=== PATIENT | female | born 1950 | race Caucasian/White ===

== ENCOUNTER 2021-04-04 16:05 | Outpatient (CLI) | payer OTHER ==
[2021-04-04 19:50] LABS: BASOPHILS % (AUTO) 0.7 %; EOSINOPHILS # (AUTO) 0.3 10^3/uL (0.0-0.7); EOSINOPHILS % (AUTO) 4.3 %; HCT - HEMATOCRIT 41.9 % (37.0-47.0); HGB - HEMOGLOBIN 13.6 g/dL (12.0-16.0); LYMPHOCYTES # (AUTO) 1.9 10^3/uL (1.5-3.5); MEAN CORPUSCULAR HEMOGLOBIN 31.1 pg (27.0-31.0); MEAN CORPUSCULAR HGB CONC 32.5 g/dL (32.0-36.0); MEAN CORPUSCULAR VOLUME 95.9 fL (81.0-99.0); MEAN PLATELET VOLUME 10.8 fL (7.9-10.8); MONOCYTES # (AUTO) 0.3 10^3/uL (0.0-1.0); MONOCYTES % (AUTO) 5.6 %; NEUTROPHILS # (AUTO) 3.6 10^3/uL (1.5-6.6); NEUTROPHILS % (AUTO) 58.2 %; PLT - PLATELET COUNT 221 10^3/uL (130-450); RED BLOOD COUNT 4.37 10^6/uL (4.20-5.40); RED CELL DISTRIBUTION WIDTH 13.4 % (12.0-15.0); WHITE BLOOD COUNT 6.1 x10^3/uL (4.8-10.8)
[2021-04-04 20:08] LABS: ALBUMIN 4.5 g/dL (3.2-5.5); ALBUMIN/GLOBULIN RATIO 1.9 (1.0-2.2); ALKALINE PHOSPHATASE 68 IU/L (42-121); ALT ALANINE AMINOTRANSFERASE 24 IU/L (10-60); AST ASPARTATE AMINOTRANSFERASE 23 IU/L (10-42); BILIRUBIN,TOTAL 0.8 mg/dL (0.2-1.0); BUN - BLOOD UREA NITROGEN 25 mg/dL (6-20); CALCIUM 9.8 mg/dL (8.5-10.3); CARBON DIOXIDE - CO2 26 mmol/L (21-32); CHLORIDE 102 mmol/L (101-111); CREATININE 0.6 mg/dL (0.4-1.0); GFR - MDRD 99 (>89); GLUCOSE 97 mg/dL (70-100); POTASSIUM 3.6 mmol/L (3.5-5.0); SODIUM 137 mmol/L (135-145); TOTAL PROTEIN 6.9 g/dL (6.7-8.2); URIC ACID 3.9 mg/dL (2.6-7.2)
[2021-04-04 20:12] LABS: CRP - C-REACTIVE PROTEIN < 1.0 mg/dL (0-1.0)
== END 2021-04-04 16:06 | disposition home or self-care (01) ==
LOC: LAB.S 16:05
PROVIDERS: ATTEND Nurse Practitioner Family
DX: R60.0 Localized edema (principal)
CPT/HCPCS: 36415; 80053; 84550; 85025; 85651; 86140

== ENCOUNTER 2021-04-17 15:46 | Outpatient (CLI) | payer OTHER ==
--- NOTE | 2021-04-17 16:30 | XRAY Report ---
PROCEDURE: Foot 3 View RT INDICATIONS: r60.0 localized edema TECHNIQUE: 3 views of the foot were acquired. COMPARISON: None FINDINGS: Bones: Linear lucency traverses the plantar surface of the distal phalanx of the first digit. No susp icious bony lesions. Severe joint space narrowing and periarticular osteophyte formation at the firs t metatarsophalangeal joint. Soft tissues: No tibiotalar joint effusion. Achilles tendon appears normal. IMPRESSION: 1. Possible fracture of the distal pharynx of the first digit. This could be further assessed with MR I, if clinically indicated. 2. First metatarsophalangeal joint osteoarthritis. Reviewed by: Markos San MD on 04/17/2021 4:29 PM PDT Approved by: Markos San MD on 04/17/2021 4:29 PM PDT Station ID: [id number]
== END 2021-04-17 15:47 | disposition home or self-care (01) ==
LOC: DI.S 15:46
PROVIDERS: ATTEND Nurse Practitioner Family
DX: R60.0 Localized edema (principal); M19.071 Primary osteoarthritis, right ankle and foot

== ENCOUNTER 2021-06-09 16:33 | Outpatient (CLI) | payer OTHER ==
--- NOTE | 2021-06-09 16:57 | XRAY Report ---
PROCEDURE: Foot 3 View RT INDICATIONS: CLOSED FRACTURE OF PHALANX OF RIGHT FOOT TECHNIQUE: 3 views of the foot were acquired. COMPARISON: Similar prior study 04/17/2021. FINDINGS: Bones: No definite fractures or dislocations but there is moderately severe to severe first MTP join t osteoarthritis with near [id number] articulation. No suspicious bony lesions. Soft tissues: No tibiotalar joint effusion. Achilles tendon appears normal. IMPRESSION: The appearance of the distal phalanx great toe is virtually identical to that present 04/17/2021. There is arthritic change that is stable over time at the first MTP joint, quite pronounced, a definite pr ior fracture is not present, in my opinion. Reviewed by: Evaristo Galaviz MD on 06/09/2021 4:56 PM PDT Approved by: Evaristo Galaviz MD on 06/09/2021 4:56 PM PDT Station ID: [id number]
== END 2021-06-09 16:34 | disposition home or self-care (01) ==
LOC: DI.S 16:33
PROVIDERS: ATTEND Internal Medicine
DX: M19.071 Primary osteoarthritis, right ankle and foot (principal)

== ENCOUNTER 2021-12-22 16:45 | Outpatient (CLI) | payer OTHER ==
--- NOTE | 2021-12-23 08:41 | XRAY Report ---
PROCEDURE: Tib/Fib LT INDICATIONS: Pain TECHNIQUE: 2 views of the tibia and fibula were acquired. COMPARISON: None FINDINGS: Bones: No fractures or dislocations. No suspicious bony lesions. Mild joint space narrowing and ma rginal osteophyte noted at the knee Soft tissues: No suspicious soft tissue calcifications or masses. IMPRESSION: Unremarkable tibia and fibular radiographs Mild knee osteoarthritis Reviewed by: Alvin Rincon MD on 12/23/2021 7:40 AM [facility] Approved by: Alvin Rincon MD on 12/23/2021 7:40 AM [facility] Station ID: [id number]
== END 2021-12-22 16:46 | disposition home or self-care (01) ==
LOC: DI.S 16:45
PROVIDERS: ATTEND Nurse Practitioner Family
DX: M17.12 Unilateral primary osteoarthritis, left knee (principal)

== ENCOUNTER 2023-02-14 17:58 | Outpatient (CLI) | payer OTHER | END 2023-02-14 17:59 | disposition home or self-care (01) | LOC: LAB 17:58 | PROVIDERS: ATTEND Pathology Blood Banking & Transfusion Medicine | DX: Z01.89 Encounter for other specified special examinations (principal) | CPT/HCPCS: 36415 ==

== ENCOUNTER 2024-05-21 07:00 | Outpatient (CLI) | payer OTHER ==
--- NOTE | 2024-05-22 13:06 | XRAY Report ---
PROCEDURE: Foot 3+V BL INDICATIONS: BILATERAL FOOT PAIN TECHNIQUE: 3 views of the foot were acquired. COMPARISON: Right foot radiograph on May 10, 2021. FINDINGS: Bones: No fractures or dislocations. Moderate to severe bilateral first MTP joint space narrowing an d juxta-articular osteophytosis. The right-sided degenerative changes are similar to prior dated May 10, 2021. No suspicious bony lesions. Soft tissues: No tibiotalar joint effusion. Achilles tendon appears normal. IMPRESSION: 1.No acute bony abnormality. If there is high clinical suspicion for a radiographically occult fractu re, recommend cross-sectional imaging for further evaluation. 2.Moderate to severe bilateral first MTP joint osteoarthritis. Reviewed by: Lisseth Simpson MD on 05/22/2024 1:05 PM PDT Approved by: Lisseth Simpson MD on 05/22/2024 1:05 PM PDT Station ID: [id number]
== END 2024-05-21 23:59 | disposition home or self-care (01) ==
LOC: DI.S 07:00
PROVIDERS: ATTEND Registered Nurse
DX: M19.072 Primary osteoarthritis, left ankle and foot (principal); M19.071 Primary osteoarthritis, right ankle and foot

== ENCOUNTER 2024-06-10 10:04 | Outpatient (CLI) | payer OTHER ==
--- NOTE | 2024-06-10 10:48 | CT Report ---
PROCEDURE: Head WO INDICATIONS: HIST OF HEAD INJURY TECHNIQUE: Noncontrast 4.5 mm thick angled axial sections acquired from the foramen magnum to the vertex. For r adiation dose reduction, the following was used: automated exposure control, adjustment of mA and/or kV according to patient size. COMPARISON: None. FINDINGS: Image quality: Excellent. CSF spaces: Basal cisterns are patent. No extra-axial fluid collections. Ventricles are prominent in size, outer portion to the degree of cerebral volume loss. Brain: No midline shift. No intracranial masses or hemorrhage. Age-related global volume loss and c hronic microvascular ischemic changes. Intracranial atherosclerotic vascular calcifications. Blackmon-wh ite matter interface is normal. Skull and face: Calvarium and visualized facial bones are intact, without suspicious lesions. Sinuses: Visualized sinuses and mastoids are clear. IMPRESSION: 1.No acute intracranial pathology. 2.Prominence of the lateral ventricles, out of proportion to degree of cerebral volume loss. Findings are nonspecific and can be seen with normal pressure hydrocephalus, recommend clinical correlation. Reviewed by: Hao Rodriguez MD on 06/10/2024 10:47 AM PDT Approved by: Hao Rodriguez MD on 06/10/2024 10:47 AM PDT Station ID: [id number]
== END 2024-06-10 10:05 | disposition home or self-care (01) ==
LOC: DI 10:04
PROVIDERS: ATTEND Internal Medicine
DX: Z87.828 Personal history of other (healed) physical injury and trauma (principal); G93.89 Other specified disorders of brain